=== PATIENT | female | born 1975 | race Caucasian/White ===

== ENCOUNTER 2017-01-13 08:36 | Emergency (ER) | payer MEDICAID ==
[2017-01-13 09:47] LABS: BASOPHIL % 0.8 % (0-2); PLATELET COUNT 235 x10^3mcL (130-400); RED CELL DISTRIBUTION WIDTH 13.9 % (11.5-14.5)
[2017-01-13 10:03] LABS: CALCIUM 8.5 mg/dL (8.5-10.1); CARBON DIOXIDE 28.6 mmol/L (21-32); CHLORIDE SERUM 108 mmol/L (98-107); CREATININE SERUM 0.7 mg/dL (0.6-1.0); GFR1 > 60 mL/min; GLUCOSE SERUM 96 mg/dL (74-106); POTASSIUM SERUM 4.6 mmol/L (3.5-5.1); SODIUM SERUM 139 mmol/L (136-145)
[2017-01-13 10:15] LABS: ALBUMIN 3.7 g/dL (3.4-5.0); ALKALINE PHOSPHATASE 48 U/L (46-116); ALT/SGPT 17 U/L (14-59); AMYLASE 50 U/L (25-115); AST/SGOT 14 U/L (15-37); BILIRUBIN TOTAL 1.6 mg/dL (0.20-1.00); LIPASE 120 IU/L (73-393); TOTAL PROTEIN, SERUM 7.2 g/dL (6.4-8.2)
[2017-01-13 11:02] VITALS: BP 112/75
== END 2017-01-13 11:02 | disposition home or self-care (01) ==
LOC: ED 08:36
PROVIDERS: Specialist
DX: M54.9 Dorsalgia, unspecified (principal); F17.210 Nicotine dependence, cigarettes, uncomplicated
CPT/HCPCS: 36415; 72072

== ENCOUNTER 2017-07-06 10:09 | Emergency (ER) | payer MEDICAID ==
[~2017-07-06] VITALS: Ht 167.6 cm; Wt 70.3 kg
[2017-07-06 10:24] VITALS: Ht 167.6 cm; Wt 70.3 kg
[2017-07-06 11:20] LABS: CALCIUM 8.8 mg/dL (8.5-10.1); CARBON DIOXIDE 29.4 mmol/L (21-32); CHLORIDE SERUM 104 mmol/L (98-107); CREATININE SERUM 0.7 mg/dL (0.6-1.0); GFR1 > 60 mL/min; GLUCOSE SERUM 100 mg/dL (74-106); POTASSIUM SERUM 3.6 mmol/L (3.5-5.1); SODIUM SERUM 139 mmol/L (136-145)
[2017-07-06 11:28] LABS: BASOPHIL % 0.5 % (0-2); PLATELET COUNT 252 x10^3mcL (130-400); RED CELL DISTRIBUTION WIDTH 13.9 % (11.5-14.5)
[2017-07-06 12:20] VITALS: BP 98/57
== END 2017-07-06 12:18 | disposition home or self-care (01) ==
LOC: ED 10:09
PROVIDERS: Emergency Medicine
DX: F43.0 Acute stress reaction (principal); G47.00 Insomnia, unspecified; Z88.0 Allergy status to penicillin
CPT/HCPCS: 36415

== ENCOUNTER 2017-09-02 10:34 | Emergency (ER) | payer OTHER ==
[~2017-09-02] VITALS: Ht 167.6 cm; Wt 72.8 kg
[2017-09-02 10:44] VITALS: Ht 167.6 cm; Wt 72.8 kg
[2017-09-02 12:15] VITALS: BP 112/68
== END 2017-09-02 12:15 | disposition home or self-care (01) ==
LOC: ED 10:34
DX: F41.1 Generalized anxiety disorder (principal); Z88.0 Allergy status to penicillin

== ENCOUNTER 2017-12-25 12:30 | Emergency (ER) | payer OTHER ==
[~2017-12-25] VITALS: Ht 170.2 cm; Wt 75.7 kg
[2017-12-25 12:44] VITALS: Ht 170.2 cm; Wt 75.7 kg
[2017-12-25 15:05] VITALS: BP 118/71
== END 2017-12-25 15:05 | disposition home or self-care (01) ==
LOC: ED 12:30
DX: R07.89 Other chest pain (principal); F41.9 Anxiety disorder, unspecified; F17.210 Nicotine dependence, cigarettes, uncomplicated; Z88.0 Allergy status to penicillin